=== PATIENT | male | born 1960 | race African-American/Black ===

== ENCOUNTER 2021-04-20 14:02 | Emergency (ER) | payer MEDICAID ==
[~2021-04-20] VITALS: Ht 170.2 cm; Wt 80.0 kg
[2021-04-20] MEDS ORDERED: keppra (14:08)
[2021-04-20 14:29] VITALS: BP 137/76
[2021-04-20] MEDS ORDERED: LEVETIRACETAM 1000MG PREMIX 100 ML IV ONE (14:30)
[2021-04-20 15:04] LABS: BASOPHILS % 0.8 % (0.0-2.0); EOSINOPHILS % 0.9 % (0.0-5.0); HEMATOCRIT. 37.5 % (42.0-52.0); HEMOGLOBIN. 13.2 g/dL (14.0-18.0); LYMPHOCYTES % 43.4 % (20.0-50.0); MEAN CORPUSCULAR HEMOGLOBIN 30.9 pg (28.0-32.0); MEAN CORPUSCULAR VOLUME 87.8 fL (80.0-94.0); MEAN PLATELET VOLUME 7.7 fl (7.4-10.4); MONOCYTES % 7.5 % (2.0-8.0); NEUTROPHILS % 47.4 % (40.0-76.0); PLATELET 218 x1000/uL (130-400); RED BLOOD CELL COUNT 4.28 mill/uL (4.7-6.1); RED CELL DISTRIBUTION WIDTH 14.7 % (11.6-14.6)
[2021-04-20 15:10] LABS: CHLORIDE 106 mEq/L (98-107)
[2021-04-20 15:14] LABS: ETHANOL BLOOD 116 mg/dL
== END 2021-04-20 16:14 | disposition home or self-care (01) ==
LOC: ER 14:02
DX: G40.909 Epilepsy, unspecified, not intractable, without status epilepticus (principal); F10.129 Alcohol abuse with intoxication, unspecified; Y90.5 Blood alcohol level of 100-119 mg/100 ml; I11.9 Hypertensive heart disease without heart failure
CPT/HCPCS: 36415; 80053; 80320; 85025; 96365; 99284; J1953; G0480

== ENCOUNTER 2025-04-11 11:53 | Inpatient (IN) | payer MEDICAID, OTHER ==
[~2025-04-11] VITALS: Ht 175.3 cm; Wt 84.8 kg
[~2025-04-11 11:53] MED LIST: keppra
[2025-04-11 11:56] VITALS: O2SAT 100
[2025-04-11 12:34] LABS: BASOPHILS % 0.3 % (0.0-2.0); EOSINOPHILS % 2.0 % (0.0-5.0); HEMATOCRIT. 37.7 % (42.0-52.0); HEMOGLOBIN. 12.4 g/dL (14.0-18.0); LYMPHOCYTES % 46.4 % (20.0-50.0); MEAN PLATELET VOLUME 9.3 fl (7.4-10.4); MONOCYTES % 7.4 % (2.0-8.0); NEUTROPHILS % 43.9 % (40.0-76.0); PLATELET 157 x1000/uL (130-400); RED BLOOD CELL COUNT 4.18 mill/uL (4.7-6.1); RED CELL DISTRIBUTION WIDTH 14.4 % (11.6-14.6)
[2025-04-11 12:50] LABS: CREATININE 1.2 mg/dL (0.6-1.3); UREA NITROGEN BLOOD 6 mg/dL (9-23)
[2025-04-11 12:52] LABS: ASPARTATE AMINOTRANSFERASE 19 IU/L (<34)
[2025-04-11 12:53] LABS: BILIRUBIN DIRECT 0.1 mg/dL (<=3.0); BILIRUBIN TOTAL 0.3 mg/dL (0.1-1.0); PROTEIN TOTAL 7.0 g/dL (6.0-8.3)
[2025-04-11] MEDS: LEVETIRACETAM 500MG PREMIX 100 ML IV ONE (12:53)
[2025-04-11] MEDS: LORAZEPAM 2MG/ML UD SYRINGE IV SCH (12:56)
[2025-04-11] MEDS: SODIUM CHLORIDE 0.9% 1,000 ML IV ONE (14:10)
[2025-04-11] MEDS: FOLIC ACID 1 MG, THIAMINE HCL 100 MG, MVI, ADULT NO.1 10 ML in DEXTROSE 5% WATER 1,000 ML IV ONE (14:16)
[2025-04-11 14:20] LABS: TROPONIN I HIGH SENSITIVITY 5 ng/L (3.0-53)
[2025-04-11 14:27] LABS: ETHANOL BLOOD < 10 mg/dL (<10)
[2025-04-11 14:32] LABS: PHENYTOIN < 2.0 ug/mL (10-20)
[2025-04-11 18:29] LABS: *AMPHETAMINES SCREEN URINE NEGATIVE (NEGATIVE); *BARBITURATES SCREEN URINE NEGATIVE (NEGATIVE); *BENZODIAZEPINES SCREEN URINE NEGATIVE (NEGATIVE); *COCAINE SCREEN URINE NEGATIVE (NEGATIVE)
[2025-04-11 18:30] LABS: CANNABINOID URINE SCREEN NEGATIVE (NEGATIVE); ECSTASY MDMA SCREEN URINE NEGATIVE (NEGATIVE); METHADONE URINE SCREEN NEGATIVE (NEGATIVE); OPIATES URINE SCREEN NEGATIVE (NEGATIVE); PHENCYCLIDINE URINE SCREEN NEGATIVE (NEGATIVE)
[2025-04-11 20:00] VITALS: BP_SYST 134; BP_SYST 156; BP_DIAS 60; BP_DIAS 78; PULSE 50; PULSE 60; RESP 16; RESP 18; TEMP 36.4; TEMP 36.418; O2SAT 99
[2025-04-11] MEDS: LEVETIRACETAM 500MG TABLET PO SCH (20:57)
[2025-04-11] MEDS: VALPROIC ACID 250MG CAPSULE PO SCH (20:57)
[2025-04-11] MEDS ORDERED: LEVETIRACETAM 500MG TABLET PO SCH (21:00)
[2025-04-12] VITALS: BP 141/67; PULSE 48; RESP 17; TEMP 36.5; O2SAT 99
[2025-04-12] MEDS ORDERED: VALP250C3 PO (03:49)
[2025-04-12] MEDS ORDERED: PHEN-434 MT (03:51)
[2025-04-12] MEDS ORDERED: [UNRECOGNIZED DRUG - CODE] (03:51)
[2025-04-12] MEDS ORDERED: LEVE1000 PO (03:51)
[2025-04-12] MEDS ORDERED: LACO100T2 MT (03:51)
[2025-04-12 04:00] VITALS: BP 158/72; PULSE 40; RESP 17; TEMP 36.6; O2SAT 99
[2025-04-12] MEDS: LORAZEPAM 2MG/ML UD SYRINGE IV PRN (06:28)
[2025-04-12 07:18] LABS: BASOPHILS % 0.4 % (0.0-2.0); EOSINOPHILS % 3.9 % (0.0-5.0); HEMATOCRIT. 42.4 % (42.0-52.0); HEMOGLOBIN. 14.0 g/dL (14.0-18.0); LYMPHOCYTES % 55.3 % (20.0-50.0); MEAN PLATELET VOLUME 9.4 fl (7.4-10.4); MONOCYTES % 8.4 % (2.0-8.0); NEUTROPHILS % 32.0 % (40.0-76.0); PLATELET 143 x1000/uL (130-400); RED BLOOD CELL COUNT 4.67 mill/uL (4.7-6.1); RED CELL DISTRIBUTION WIDTH 14.3 % (11.6-14.6)
[2025-04-12 08:00] VITALS: BP 151/72; PULSE 40; RESP 20; TEMP 36; O2SAT 100
[2025-04-12 12:00] VITALS: BP 132/61; PULSE 41; RESP 18; TEMP 36.2; O2SAT 98
[2025-04-12] MEDS ORDERED: ACETAMINOPHEN 325MG TABLET PO PRN (15:15)
[2025-04-12] MEDS ORDERED: ONDANSETRON HCL 4MG/2ML INJ IV PRN (15:15)
[2025-04-12 16:00] VITALS: BP 144/74; PULSE 43; RESP 17; TEMP 36.1; O2SAT 97
[2025-04-12 17:12] LABS: CLARITY URINE CLEAR (CLEAR); COLOR URINE YELLOW (YELLOW); GLUCOSE URINE NEGATIVE (NEGATIVE); KETONES URINE NEGATIVE (NEGATIVE); LEUKOCYTE ESTERASE URINE NEGATIVE (NEGATIVE); NITRITE URINE NEGATIVE (NEGATIVE); OCCULT BLOOD URINE NEGATIVE (NEGATIVE); PH URINE 7.0 (4.5-8.0); PROTEIN URINE NEGATIVE (NEGATIVE); SPECIFIC GRAVITY URINE 1.006 (1.005-1.030); UROBILINOGEN URINE 0.2 E.U./dL (0.2-1.0)
[2025-04-12 20:00] VITALS: BP 138/76; PULSE 51; RESP 18; TEMP 36.7; O2SAT 98
[2025-04-12] MEDS: PHENYTOIN SODIUM EXTENDED 100MG CAPSULE PO SCH (21:03)
[2025-04-13] VITALS: BP 128/70; PULSE 78; RESP 20; TEMP 36.7; O2SAT 98
[2025-04-13 04:00] VITALS: BP 136/54; PULSE 41; RESP 18; TEMP 36.9; O2SAT 99
[2025-04-13 08:00] VITALS: BP 142/71; PULSE 40; RESP 17; TEMP 36.1; O2SAT 99
[2025-04-13] MEDS: PANTOPRAZOLE SODIUM 40 MG/VIAL IV SCH (08:53)
[2025-04-13] MEDS ORDERED: ALFU10TA46 MT (09:02)
[2025-04-13 10:19] LABS: BASOPHILS % 0.2 % (0.0-2.0); EOSINOPHILS % 3.3 % (0.0-5.0); HEMATOCRIT. 46.1 % (42.0-52.0); HEMOGLOBIN. 15.3 g/dL (14.0-18.0); LYMPHOCYTES % 46.4 % (20.0-50.0); MEAN PLATELET VOLUME 9.8 fl (7.4-10.4); MONOCYTES % 6.5 % (2.0-8.0); NEUTROPHILS % 43.6 % (40.0-76.0); PLATELET 168 x1000/uL (130-400); RED BLOOD CELL COUNT 5.06 mill/uL (4.7-6.1); RED CELL DISTRIBUTION WIDTH 14.7 % (11.6-14.6)
[2025-04-13 10:26] LABS: CREATININE 1.0 mg/dL (0.6-1.3); UREA NITROGEN BLOOD 7 mg/dL (9-23)
[2025-04-13 12:00] VITALS: BP 112/73; PULSE 48; RESP 18; TEMP 36.8; O2SAT 98
[2025-04-13 16:00] VITALS: BP 134/72; PULSE 45; RESP 18; TEMP 36.1; O2SAT 93
[2025-04-13 20:00] VITALS: BP 121/79; PULSE 76; RESP 18; TEMP 37; O2SAT 98
[2025-04-13] MEDS: LEVETIRACETAM 500MG TABLET PO SCH (20:53)
[2025-04-14] VITALS: BP 118/70; PULSE 92; RESP 20; TEMP 37.1; O2SAT 98
[2025-04-14 04:00] VITALS: BP 116/76; PULSE 49; RESP 18; TEMP 36.7; O2SAT 96
[2025-04-14 08:00] VITALS: BP 132/70; PULSE 46; RESP 18; TEMP 36.4; O2SAT 98
[2025-04-14 09:00] LABS: CREATININE 0.9 mg/dL (0.6-1.3); UREA NITROGEN BLOOD 7 mg/dL (9-23)
[2025-04-14 09:15] LABS: BASOPHILS % 0.3 % (0.0-2.0); EOSINOPHILS % 3.1 % (0.0-5.0); HEMATOCRIT. 42.9 % (42.0-52.0); HEMOGLOBIN. 14.2 g/dL (14.0-18.0); LYMPHOCYTES % 47.4 % (20.0-50.0); MEAN PLATELET VOLUME 9.9 fl (7.4-10.4); MONOCYTES % 6.5 % (2.0-8.0); NEUTROPHILS % 42.7 % (40.0-76.0); PLATELET 149 x1000/uL (130-400); RED BLOOD CELL COUNT 4.77 mill/uL (4.7-6.1); RED CELL DISTRIBUTION WIDTH 14.5 % (11.6-14.6)
[2025-04-14] MEDS ORDERED: ATOR20TA65 MT (10:12)
[2025-04-14] MEDS ORDERED: ZONI100C45 PO (10:12)
[2025-04-14] MEDS ORDERED: FOLI-43 MT (10:12)
[2025-04-14] MEDS ORDERED: DIAZ15SP (10:12)
[2025-04-14] MEDS ORDERED: MAGN400T26 MT (10:12)
[2025-04-14] MEDS ORDERED: PYRI-9 MT (10:12)
[2025-04-14] MEDS ORDERED: CENO200T PO (10:12)
[2025-04-14] MEDS ORDERED: AMLO5TAB88 MT (10:12)
[2025-04-14] MEDS ORDERED: VITA400T9 PO (10:12)
[2025-04-14] MEDS ORDERED: PHEN100C12 MT (10:12)
[2025-04-14] MEDS: ZONISAMIDE 100MG CAPSULE PO SCH (11:30)
[2025-04-14] MEDS: TAMSULOSIN HCL 0.4MG SR CAPSULE PO SCH (11:31)
[2025-04-14] MEDS: AMLODIPINE 5MG TABLET PO SCH (11:31)
[2025-04-14 12:00] VITALS: BP 131/70; PULSE 52; RESP 15; TEMP 36.7; O2SAT 98
[2025-04-14 16:00] VITALS: BP 135/71; PULSE 46; RESP 20; TEMP 36.7; O2SAT 96
[2025-04-14 20:00] VITALS: BP 128/77; PULSE 59; RESP 19; TEMP 36.8; O2SAT 97
[2025-04-14] MEDS: ATORVASTATIN CALCIUM 20MG TABLET PO SCH (20:52)
[2025-04-15 04:00] VITALS: BP 118/73; PULSE 48; RESP 18; TEMP 36.4; O2SAT 98
[2025-04-15 08:00] VITALS: BP 127/63; PULSE 57; RESP 18; TEMP 36.6; O2SAT 97
[2025-04-15 12:00] VITALS: BP 135/63; PULSE 54; RESP 18; TEMP 36.6; O2SAT 100
[2025-04-15 13:48] VITALS: BP 135/63; PULSE 54; RESP 18; TEMP 97.7
== END 2025-04-15 14:47 | disposition home or self-care (01) | DRG 53 ==
LOC: ER 11:53 → 8WST 17:07 → EDBEDREQ 17:16 → EDBEDREQTM 17:16 → ENRESERV 17:22
PROVIDERS: ADMIT Internal Medicine; ATTEND Internal Medicine
DX: G40.901 Epilepsy, unspecified, not intractable, with status epilepticus (principal); J96.01 Acute respiratory failure with hypoxia; I10 Essential (primary) hypertension; I25.10 Atherosclerotic heart disease of native coronary artery without angina pectoris; F41.9 Anxiety disorder, unspecified; Z79.899 Other long term (current) drug therapy
CPT/HCPCS: 36415; 71045; 80048; 80076; 80165; 80185; 80305; 80320; 80339; 81003; 83735; 84443; 84484; 85025; 93005; 93970; 96365; 96367; 96375; 96376; 97162; 99285; A4606; J1953; J2060; J2470; J3411; J3490; J7030; J7070; G0480